=== PATIENT | female | born 1930 | race Caucasian/White ===

== ENCOUNTER 2018-11-22 12:21 | Emergency (ER) | payer OTHER ==
[~2018-11-22] VITALS: Ht 165.1 cm; Wt 63.5 kg
[2018-11-22] MEDS ORDERED: KETOROLAC TROMETH 15 mg/ml 1ML VL IV ONE (14:45)
[2018-11-22] MEDS ORDERED: KETOROLAC TROMETH 30 MG/ML 1ML VIAL ONE (14:57)
[2018-11-22 15:02] VITALS: BP 162/84
== END 2018-11-22 16:38 | disposition home or self-care (01) ==
LOC: EDBD 12:21 → ER 12:27
DX: S22.32XA Fracture of one rib, left side, initial encounter for closed fracture (principal); M19.90 Unspecified osteoarthritis, unspecified site; E78.5 Hyperlipidemia, unspecified; I10 Essential (primary) hypertension; E03.9 Hypothyroidism, unspecified; Z90.710 Acquired absence of both cervix and uterus; Z90.49 Acquired absence of other specified parts of digestive tract; V49.59XA Passenger injured in collision with other motor vehicles in traffic accident, initial encounter; Y93.89 Activity, other specified; Y99.8 Other external cause status; Y92.488 Other paved roadways as the place of occurrence of the external cause
CPT/HCPCS: 70450; 71101; 93005; 96374; 99284; J1885